=== PATIENT | male | born 1990 | race African-American/Black ===

== ENCOUNTER 2017-01-13 19:11 | Emergency (ER) | payer SELFPAY ==
[2017-01-13] MEDS ORDERED: Adacel (T-DAP) 0.5 ML VIAL ONE (19:23)
--- NOTE | 2017-01-13 20:04 | RAD ---
TWO VIEWS OF THE LEFT FOREARM 01/13/17 COMPARISON: None. HISTORY: Punctured left forearm with a shelley nail, injury, pain. FINDINGS: There is no fracture. No radiopaque foreign body. IMPRESSION: No acute findings. POS: [facility]
== END 2017-01-13 20:11 | disposition home or self-care (01) ==
LOC: ERS 19:11
DX: S51.831A Puncture wound without foreign body of right forearm, initial encounter (principal); F17.210 Nicotine dependence, cigarettes, uncomplicated; W26.8XXA Contact with other sharp object(s), not elsewhere classified, initial encounter; Y92.69 Other specified industrial and construction area as the place of occurrence of the external cause; Y99.0 Civilian activity done for income or pay
CPT/HCPCS: 90471; 90715

== ENCOUNTER 2017-01-14 20:35 | Emergency (ER) | payer SELFPAY ==
--- NOTE | 2017-01-14 22:41 | RAD ---
FRONTAL AND LATERAL IMAGING OF CHEST: Date: 01/14/17 COMPARISON: None. HISTORY: Cough, positive TB skin test. FINDINGS: Lungs are clear. Heart and mediastinal contours are grossly unremarkable. No evidence for tuberculosi s. IMPRESSION: No acute findings. POS: [facility]
== END 2017-01-14 23:21 | disposition home or self-care (01) ==
LOC: ERS 20:35
DX: R76.11 Nonspecific reaction to tuberculin skin test without active tuberculosis (principal); F17.210 Nicotine dependence, cigarettes, uncomplicated
CPT/HCPCS: 71020

== ENCOUNTER 2018-09-16 22:50 | Emergency (ER) | payer SELFPAY ==
[2018-09-16 23:23] LABS: #Basophils 0.1 thou/uL (0.0-0.2); #Eosinphils 0.3 thou/uL (0.0-0.7); #Lymphocytes 3.6 thou/uL (1.20-3.40); #Neutrophils 7.5 thou/uL (1.40-6.50); %Basophils 0.4 % (0.0-1.0); %Eosinophils 2.1 % (0.0-10.0); %Lymphocytes 28.9 % (21.0-51.0); %Monocytes 8.2 % (0.0-10.0); %Neutrophils 60.4 % (42.0-75.0); Hemoglobin 13.8 g/dL (14.0-18.0); Mean Corpuscular HGB CONC 33.9 g/dL (32.0-36.0); Mean Corpuscular Volume 88.4 fL (78.0-98.0); Mean Platelet Volume 8.5 fL (7.4-10.4); Platelet Count 190 thou/uL (130-400); RBC Distribution Width 11.1 % (11.5-14.5); Red Blood Cell (RBC) Count 4.59 mill/uL (4.70-6.10); White Blood Cell (WBC) Count 12.4 thou/uL (4.8-10.8)
--- NOTE | 2018-09-16 23:25 | RAD ---
XR Chest 1 View Portable HISTORY: Chest pain COMPARISON: 01/14/2017 study. FINDINGS: Heart size is upper limits of normal considering portable technique. Mediastinal structures are unremarkable. The lungs are clear of infiltrates. IMPRESSION: No active intrathoracic disease.
[2018-09-16 23:46] LABS: ALT (SGPT) 24 U/L (8-55); AST (SGOT) 32 U/L (5-34); Albumin 4.7 g/dL (3.5-5.0); Alkaline Phosphatase 72 U/L (40-150); Anion Gap 14 mmol/L (10-20); BUN (Urea Nitrogen) 19 mg/dL (8.9-20.6); Bilirubin, Total 0.6 mg/dL (0.2-1.2); CK (CPK) 1409 U/L (30-200); Calc. Creatinine Clearance 0 mL/min (70-130); Calcium 10.1 mg/dL (7.8-10.44); Carbon Dioxide 26 mmol/L (22-29); Chloride 103 mmol/L (98-107); Estimated GFR-MDRD 69; Globulin 2.9 g/dL (2.4-3.5); Glucose 94 mg/dL (70-105); Lipase 40 U/L (8-78); Potassium 3.6 mmol/L (3.5-5.1); Protein, Total 7.6 g/dL (6.0-8.3); Sodium 139 mmol/L (136-145)
[2018-09-16 23:50] LABS: CKMB 2.5 ng/mL (0-6.6)
--- NOTE | 2018-09-21 10:09 | EKG ---
Test Reason : Blood Pressure : / mmHG Vent. Rate : 074 BPM Atrial Rate : 074 BPM P-R Int : 158 ms QRS Dur : 088 ms QT Int : 378 ms P-R-T Axes : 063 059 -01 degrees QTc Int : 419 ms Normal sinus rhythm RSR' or QR pattern in V1 suggests right ventricular conduction delay T wave abnormality, consider anterior ischemia Abnormal ECG Confirmed by OMAR ENRIQUEZ, CHARLA ([id number]), editor magazine DESHAUN HODGES ([id number]) on 09/21/2018 10:08:52 AM Referred By: Confirmed By:CHARLA NELSON MD
== END 2018-09-17 00:24 | disposition home or self-care (01) ==
LOC: ERS 22:50
DX: M62.82 Rhabdomyolysis (principal); K21.9 Gastro-esophageal reflux disease without esophagitis; F17.210 Nicotine dependence, cigarettes, uncomplicated
CPT/HCPCS: 71045; 80053; 82550; 82553; 83690; 84484; 85025; 93005; 96360

== ENCOUNTER 2019-02-10 14:52 | Emergency (ER) | payer SELFPAY | END 2019-02-10 16:06 | disposition home or self-care (01) | LOC: ERS 14:52 | DX: J11.1 Influenza due to unidentified influenza virus with other respiratory manifestations (principal); F17.210 Nicotine dependence, cigarettes, uncomplicated | CPT/HCPCS: 99283 ==

== ENCOUNTER 2019-06-04 22:50 | Emergency (ER) | payer SELFPAY | END 2019-06-04 23:40 | disposition home or self-care (01) | LOC: ERS 22:50 | DX: E86.0 Dehydration (principal); J45.909 Unspecified asthma, uncomplicated; F17.200 Nicotine dependence, unspecified, uncomplicated | CPT/HCPCS: 99284 ==